=== PATIENT | male | born 1990 | race Caucasian/White ===

== ENCOUNTER 2020-02-17 14:38 | Emergency (ER) | payer MEDICAID, SELFPAY ==
[2020-02-17 14:40] VITALS: BP 167/93; PULSE 108; RESP 20; TEMP 37.1; O2SAT 97; BMI 26.4
[2020-02-17 14:56] VITALS: BP 158/89; PULSE 108; RESP 18; O2SAT 96
--- NOTE | 2020-02-17 15:27 | HMH.EDGENADL ---
ED Disposition Clinical Impression: Chin laceration Qualifiers: Encounter type: initial encounter Qualified Code(s): S01.81XA - Laceration without foreign body of other part of head, initial encounter Disposition: Home, Self-Care Condition on Discharge: Good Instructions: DI for Laceration Repair Additional Instructions: Additional instructions for FACIAL LACERATION: Clean the wound daily with soap and water. You may shower. Apply a thin film of antibiotic ointment such as neosporin or triple antibiotic after showering. Avoid submerging the wound, no swimming. See your primary care physician or return to the [facility] in 7 days for suture removal. The [facility] is open 9 AM to 9 PM 7 days a week. Return if any signs of infection including increasing pain, pus drainage, swelling, redness, red streaks, or fever. Referrals: Josefina Gonzalez APRN [Primary Care Provider] - - Critical Care Critical Care Time: No Attestation: On 02/17/20, the high probability of a clinically significant, sudden or life threatening deterioration of the following system(s) required my full and direct attention, intervention and personal management. The time I documented below is in addition to time spent performing reported procedures but includes the following listed in this critical care notation. Medical Decision Making - Medical Records Medical records reviewed: Yes: I reviewed the patient's medical records. MR Comment: Last tetanus immunization here 08/14/2015 - Jose Miguel Inquiry Pt receiving controlled substance: No Vital Signs: 02/17/20 14:40 02/17/20 14:56 02/17/20 15:42 Temperature 98.7 F Temperature Source Oral Pulse Rate Pulse Rate [Left Radial] 108 H 108 H 95 H Respiratory Rate 20 18 18 Blood Pressure Blood Pressure [Right Arm] 167/93 H 158/89 H 150/87 H Blood Pressure Mean [Right Arm] 117 112 108 Blood Pressure Source Blood Pressure Source [Right Arm] Automatic Cuff Blood Pressure Position Blood Pressure Position [Right Arm] Sitting 02 Sat by Pulse Oximetry 97 96 97 Oxygen Delivery Method Room Air Room Air Room Air 02/17/20 16:25 Temperature 98.7 F Temperature Source Oral Pulse Rate 95 H Pulse Rate [Left Radial] Respiratory Rate 18 Blood Pressure 150/87 H Blood Pressure [Right Arm] Blood Pressure Mean [Right Arm] Blood Pressure Source Automatic Cuff Blood Pressure Source [Right Arm] Blood Pressure Position Sitting Blood Pressure Position [Right Arm] 02 Sat by Pulse Oximetry Oxygen Delivery Method Room Air Orders (Tests/Meds): ED MEDICATIONS Discontinued Medications Generic Name Dose Route Start Last Admin Trade Name Stephanie PRN Reason Stop Dose Admin Lidocaine/Epinephrine 10 ml 02/17/20 15:41 Lidocaine 2% W/Epi 1:100,000 20ml Vial IJ 02/17/20 15:42 ONCE ONE General Adult HPI - General Chief complaint: Wound/Laceration Stated complaint: ao tree limb busted chin Time Seen by Provider: 02/17/20 15:27 Mode of Arrival: Ambulatory Limitations: No Limitations Description of Symptoms (Recalled from ER Triage Doc. by RN): c/o chin laceration. PT was cutting wood when a piece came up and hit him in the chin. - History of Present Illness HPI narrative: Sustained a chin laceration while cutting wood. A piece of wood popped up and hit him under his chin. He has some chipped teeth, right mandibular anterior, left maxillary posterior, and right maxillary posterior. No loose teeth. No mandibular/TMJ pain no loss of consciousness. No neck pain. No other injuries. Last tetanus immunization less than 5 years ago. - Related Data Home Medications Medication Instructions Recorded Confirmed lisinopril 20 mg tablet 20 mg PO DAILY 08/29/18 11/05/18 sertraline 100 mg tablet 100 mg PO DAILY 08/29/18 11/05/18 Previous Rx's Medication Instructions Recorded Cyclobenzaprine HCl [Flexeril 10mg 10 mg PO Q8HP PRN 7 Days #21 tab 11/05/18 ta
[2020-02-17 15:42] VITALS: BP 150/87; PULSE 95; RESP 18; O2SAT 97
--- NOTE | 2020-02-17 15:52 | PC.NURSE ---
at bedside suturing.
[2020-02-17 16:25] VITALS: BP 150/87; PULSE 95; RESP 18; TEMP 37.1; O2SAT 97
== END 2020-02-17 16:26 | disposition home or self-care (01) ==
PROVIDERS: Emergency Provider Emergency Medicine; PCP Nurse Practitioner
DX: S01.81XA Laceration without foreign body of other part of head, initial encounter (principal); S02.5XXA Fracture of tooth (traumatic), initial encounter for closed fracture; W22.8XXA Striking against or struck by other objects, initial encounter; Y92.018 Other place in single-family (private) house as the place of occurrence of the external cause; I10 Essential (primary) hypertension
CPT/HCPCS: 12053; 99283

== ENCOUNTER 2020-10-10 19:54 | Emergency (ER) | payer MEDICAID, SELFPAY ==
--- NOTE | 2020-10-10 20:14 | PC.NURSE ---
While attempting to triage pt, he decided to leave without being seen d/t visitor policy. Pt was upset his fiance could not come back. He states she has my information from [facility] on the phone . Pt was told we could call her and get the info, but pt decided if she can't come back then I'll just go back to [facility] .
[2020-10-10 20:23] VITALS: BP 00/00; PULSE 0; RESP 0; TEMP -17.7; TEMP 0
== END 2020-10-10 20:23 | disposition left against medical advice (07) ==
LOC: ER 20:03
PROVIDERS: Emergency Provider Emergency Medicine; PCP Nurse Practitioner
DX: Z53.21 Procedure and treatment not carried out due to patient leaving prior to being seen by health care provider (principal)
CPT/HCPCS: 99211